=== PATIENT | male | born 1975 | race Asian ===

== ENCOUNTER 2019-07-02 12:03 | Emergency (ER) | payer MEDICAID ==
[~2019-07-02] VITALS: Ht 170.2 cm; Wt 70.9 kg
[2019-07-02] MEDS ORDERED: PB/HYOSCY/ATR/SCOP/LIDO/MAALOX 55 ML BOTTLE PO ONE (14:45)
[2019-07-02] MEDS ORDERED: IBUPROFEN 600 MG TABLET PO ONE (14:45)
[2019-07-02 14:59] VITALS: BP 137/92
== END 2019-07-02 15:28 | disposition home or self-care (01) ==
LOC: EMS 12:10
DX: J02.8 Acute pharyngitis due to other specified organisms (principal); M79.10 Myalgia, unspecified site; B97.89 Other viral agents as the cause of diseases classified elsewhere
CPT/HCPCS: 87430

== ENCOUNTER 2024-12-22 16:20 | Emergency (ER) | payer MEDICAID ==
[~2024-12-22] VITALS: Ht 170.2 cm; Wt 70.5 kg
[2024-12-22 16:26] VITALS: BP 125/88; PULSE 68; RESP 16; TEMP 98; O2SAT 100
== END 2024-12-22 18:12 | disposition left against medical advice (07) ==
LOC: EMS 16:20
DX: L50.9 Urticaria, unspecified (principal); Z53.21 Procedure and treatment not carried out due to patient leaving prior to being seen by health care provider